=== PATIENT | male | born 1955 | race African-American/Black ===

== ENCOUNTER 2018-11-11 10:53 | Inpatient (IN) | payer MEDICARE, OTHER ==
[2018-11-11 11:19] VITALS: BMI 34.0
--- NOTE | 2018-11-11 12:35 | HP ---
CIWA Score Nausea/Vomitin-No Nausea/No Vomiting Muscle Tremors: 4-Moderate,w/Arms Extend Anxiety: 4-Mod. Anxious/Guarded Agitation: 3 Paroxysmal Sweats: 1-Minimal Palms Moist Orientation: 0-Oriented Tacttile Disturbances: 0-None Auditory Disturbances: 0-None Visual Disturbances: 0-None Headache: 0-None Present CIWA-Ar Total Score: 12 - Admission Criteria OASAS Guidelines: Admission for Medically Managed Detox: Requires at least one of the followin. CIWA greater than 12 2. Seizures within the past 24 hours 3. Delirium tremens within the past 24 hours 4. Hallucinations within the past 24 hours 5. Acute intervention needed for co occurring medical disorder 6. Acute intervention needed for co occurring psychiatric disorder 7. Severe withdrawal that cannot be handled at a lower level of care (continued vomiting, continued diarrhea, abnormal vital signs) requiring intravenous medication and/or fluids 8. Patient presents the following: CIWA greater than 12 Admission Criteria Met: Admission criteria met Admission ROS S - HPI Chief Complaint: ALCOHOL WITHDRAWAL SX Allergies/Adverse Reactions: Allergies Allergy/AdvReac Type Severity Reaction Status Date / Time trazodone Allergy Severe Swelling Verified 11/11/18 11:54 History of Present Illness: 63 Y/O MALE WITH A HX OF ALCOHOL, CRACK/COCIANE DEPENDENCE WITH OCCASIONAL MARIJUANA SEEKING DETOX TX. FIRST TIME HERE IN THIS FACILITY. PT REPORTS HE WAS REFERRED TO [facility] DETOX FROM [facility](NO DETOX BED AVAILABLE). PT REPORTS PREVIOUS TREATMENT DETOX/REHAB TREATMENT AT [facility] WITH COMPLETTIONS BUT DID NOT FINISH LAST TREATMENT IN MAY 2018. PT REPORTS HX OF SCIATICA AND TAKES NEURONTIN, HAS HX OF HTN,GERD AND HYPERLIPIDEMIA AND TAKES MEDICATIONS(SEE MED LIST). PT REPORTS HE HAS A TEMPORARY PCP DR. IVON FARFAN AT [address] BUT WANTS TO SWITCH TO HIS PREVIOUS AT [address] [place] [address]. PT REPORTS HE HAS BEEN LIVING ON/OFF [facility]WEEN [facility] [place] [place] SINCE [place]. REPORTS HE HAS FAMILY IN [place] AND ONE NIECE IN [place]. Exam Limitations: No Limitations - Ebola screening Have you traveled outside of the country in the last 21 days: No Have you had contact with anyone from an Ebola affected area: No Have you been sick,other than usual withdrawal symptoms: No Do you have a fever: No - Review of Systems Constitutional: Changes in sleep EENT: reports: Blurred Vision (WEARS CORRECTIVE GLASSES--STOLEN), Nose Congestion, Dental Problems (NO TEETH--DENTURES STOLEN ON THE TRAIN) Respiratory: reports: SOB with Exertion Cardiac: reports: Chest Tightness GI: reports: Other (ABDOMINAL SX/HERNIA/PERFORATION) Musculoskeletal: reports: Back Pain, Joint Pain, Muscle Pain Neuro: reports: Tremors Endocrine: reports: No Symptoms Reported Hematology: reports: No Symptoms Reported Psychiatric: reports: Orientated x3 Other Systems: Reviewed and Negative Patient History - Patient Medical History Hx Anemia: No Hx Asthma: No Hx Chronic Obstructive Pulmonary Disease (COPD): No Hx Cardiac Disorders: Yes (PALPITATIONS) Hx Hypertension: Yes (ON MED) Hx Hypercholesterolemia: Yes (ON MED) HX Cerebrovascular Accident: Yes (LEFT SIDE 2004) Hx Seizures: Yes (LAST EPISODE 2000-NO MED) Hx Diabetes: No Hx Gastrointestinal Disorders: Yes (GERD/SX) Hx Sexually Transmitted Disorders: Yes (SYPHILIS 1970 WITH TREATMENT) Hx Renal Disease (ESRD): No Hx Thyroid Disease: No Hx Human Immunodeficiency Virus (HIV): No Hx Hepatitis C: No Hx Depression: No Hx Suicide Attempt: No (DENIES S/I) Hx Bipolar Disorder: No Hx Schizophrenia: No - Patient Surgical History Past Surgical History: Yes Hx Abdominal Surgery: Yes (PERFORATED GASTRIC ULCER IN 2014; ABD HERNIA 2006) Other Surgical History: INTESTINAL BLOCKAGE 2008-MESH Anesthesia Reaction: No - PPD History Previous Implant?: Yes (PPD POSITIVE HX WITH INH + B12) Documented Results: Positive w/o proof Implanted On Prior [facility] Admission?: No Results: CXR TO BE DONE PPD to be Administered?: No - Reproductive History Patient is a Female of Child Bearing Age (11 -55 yrs old): No (MALE) - Smoking Cessation Smoking history: Current every day smoker Have you smoked in the past 12 months: Yes Aproximately how many cigarettes per day: 3 Hx Chewing Tobacco Use: No Initiated information on smoking cessation: Yes 'Breaking Loose' booklet given: 11/11/18 - Substance & Tx. History Hx Alcohol Use: Yes Hx Substance Use: Yes Substance Use Type: Alcohol, Cocaine, Marijuana Hx Substance Use Treatment: Yes ([facility]) - Substances Abused Crack Route: Smoking Frequency: 1-2 times per week Amount used: $100 Age of first use: 26 Date of Last Use: 11/10/18 Alcohol-vodka/4 eyad Route: Oral Frequency: Daily Amount used: 2 pts./2 (24 oz.) Age of first use: 13 Date of Last Use: 11/11/18 Family Disease History - Family Disease History Family Disease History: Other: Mother (HTN) Admission Physical Exam BHS - Vital Signs Vital Signs: Vital Signs - 24 hr 11/11/18 11:14 Temperature 98.7 F Pulse Rate 113 H Respiratory 20 Rate Blood Pressure 105/56 L - Physical General Appearance: Yes: Moderate Distress, Alcohol on Breath, Intoxicated, Anxious HEENTM: Yes: EOMI, Normocephalic, ANIL, Pharynx Normal Respiratory: Yes: Chest Non-Tender, Lungs Clear, Normal Breath Sounds, No Respiratory Distress Neck: Yes: Supple, Trachea in good position Breast: Yes: Breast Exam Deferred Cardiology: Yes: Regular Rhythm, S1, S2, Tachycardia Abdominal: Yes: Non Tender, Soft, Protuberent, Surgical Scar Genitourinary: Yes: Other (N/C) Back: Yes: Decreased Range of Motion (SMALL LEFT FINGER-ACTIVE) Musculoskeletal: Yes: Back pain, Other (WALKS WITH CANE-WITH PATIENT.) Extremities: Yes: Normal Range of Motion, Tremors Neurological: Yes: continuous conveyor screen drier II-XII NML intact, Fully Oriented, Alert, Motor Strength 5/5 Integumentary: Yes: Dry, Warm Lymphatic: Yes: Within Normal Limits - Diagnostic (1) Alcohol dependence with uncomplicated withdrawal Current Visit: Yes Status: Acute (2) HTN (hypertension) Current Visit: Yes Status: Chronic Qualifiers: Hypertension type: essential hypertension Qualified Code(s): I10 - Essential (primary) hypertension (3) Hypercholesteremia Current Visit: Yes Status: Chronic (4) History of sciatica Current Visit: Yes Status: Chronic (5) Use of cane as ambulatory aid Current Visit: Yes Status: Chronic (6) Hx of seizure disorder Current Visit: Yes Status: Suspected (7) GERD (gastroesophageal reflux disease) Current Visit: Yes Status: Chronic Qualifiers: Esophagitis presence: esophagitis presence not specified Qualified Code(s) : K21.9 - Gastro-esophageal reflux disease without esophagitis (8) Status post cerebrovascular accident Current Visit: Yes Status: Resolved Comment: LEFT SIDE (9) Obesity (BMI 30.0-34.9) Current Visit: Yes Status: Chronic (10) Knee pain, chronic Current Visit: Yes Status: Chronic Qualifiers: Laterality: bilateral Qualified Code(s): M25.561 - Pain in right knee; M25.562 - Pain in left knee; G89.29 - Other chronic pain Cleared for Admission BHS - Detox or Rehab [facility] Level of Care: Medically Managed Detox Regimen/Protocol: Librium S Breath Alcohol Content Breath Alcohol Content: 0.096 Urine Drug Screen - Results Drug Screen Negative: No Urine Drug Screen Results: THC-Marijuana, CATHERINE-Cocaine Inpatient Rehab Admission - Rehab Decision to Admit Inpatient rehab admission?: No
[2018-11-11] MEDS ORDERED: IBUPROFEN 400 MG TABLET (FP) PO PRN (12:56)
[2018-11-11] MEDS ORDERED: guaiFENesin/D-METHORPHAN HB 10 ML UNIT-DOSE CUPS PO PRN (12:56)
[2018-11-11] MEDS ORDERED: MAGNESIUM CITRATE 300 ML BOTTLE PO PRN (12:56)
[2018-11-11] MEDS ORDERED: P-EPHED 60MG/TRIPROLIDI 2.5MG TABLET PO PRN (12:56)
[2018-11-11] MEDS ORDERED: chlordiazePOXIDE HCL 25 MG CAPSULE PO PRN (12:56)
[2018-11-11] MEDS ORDERED: ACETAMINOPHEN 325 MG TABLET (FP) PO PRN (12:56)
[2018-11-11] MEDS ORDERED: MAG HYDROX/AL HYDROX/SIMETH 30 ML UNIT-DOSE CUP PO PRN (12:56)
[2018-11-11] MEDS ORDERED: MAGNESIUM HYDROX 2400MG/30ML ORAL SUSPENSION 30 ML CUP PO PRN (12:56)
[2018-11-11] MEDS ORDERED: LOPERAMIDE HCL 2 MG CAPSULE PO PRN (12:56)
[2018-11-11] MEDS ORDERED: MENTHOL/PHENOL 1 EACH UD MM PRN (12:56)
--- NOTE | 2018-11-11 14:58 | EKG ---
Test Reason : Blood Pressure : / mmHG Vent. Rate : 115 BPM Atrial Rate : 115 BPM P-R Int : 122 ms QRS Dur : 086 ms QT Int : 326 ms P-R-T Axes : 063 -35 -25 degrees QTc Int : 450 ms SINUS TACHYCARDIA WITH FUSION COMPLEXES LEFT AXIS DEVIATION NONSPECIFIC T WAVE ABNORMALITY ABNORMAL ECG NO PREVIOUS ECGS AVAILABLE Confirmed by SHREYAS SHARMA MD ([id number]) on 11/11/2018 2:58:10 PM Referred By: Confirmed By:SHREYAS SHARMA MD
[2018-11-11] MEDS: chlordiazePOXIDE HCL 25 MG CAPSULE PO SCH ×2 (17:49→22:16)
[2018-11-11] MEDS: THIAMINE HCL 100 MG TABLET (FP) PO SCH (22:16)
[2018-11-11] MEDS: MELATONIN 5 MG TABLETS PO PRN (22:16)
[2018-11-12] MEDS: chlordiazePOXIDE HCL 25 MG CAPSULE PO SCH ×4 (05:51→22:16)
[2018-11-12] MEDS: PRENATAL VITAMINS W/ FOLIC ACID TABLET (FP) PO SCH (10:18)
[2018-11-12] MEDS ORDERED: PANTOPRAZOLE 40 MG TABLET (FP) PO ONE (10:26)
[2018-11-12 11:22] LABS: ALK PHOS 80 U/L (45-117); ANION GAP 10 MMOL/L (8-16); BILIRUBIN,TOTAL 0.4 mg/dL (0.2-1); BLOOD UREA NITROGEN 20 mg/dL (7-18); CALCIUM 8.7 mg/dL (8.5-10.1); CHLORIDE 108 mmol/L (98-107); CO2 22 mmol/L (21-32); GLUCOSE,RANDOM 127 mg/dL (74-106); POTASSIUM 3.5 mmol/L (3.5-5.1); SGOT/AST 27 U/L (15-37); SGPT/ALT 23 U/L (13-61); SODIUM 140 mmol/L (136-145); TOT PROT 7.6 g/dl (6.4-8.2)
[2018-11-12 11:32] LABS: HEMATOCRIT 40.2 % (35.4-49); HEMOGLOBIN 13.6 GM/dL (11.7-16.9); MCH 28.7 pg (25.7-33.7); MCHC 33.9 g/dl (32.0-35.9); MEAN CELL VOLUME 84.7 fl (80-96); MEAN PLT VOLUME 9.1 fl (7.5-11.1); PLATELET COUNT 274 K/MM3 (134-434); RBC 4.75 M/mm3 (4.00-5.60); RDW 14.6 % (11.9-15.9)
[2018-11-12] MEDS: ASPIRIN COATED 81 MG TABLET.EC PO SCH (11:37)
[2018-11-12 13:10] LABS: SICKLE CELL SCREEN NEGATIVE (NEGATIVE)
--- NOTE | 2018-11-12 14:23 | PN ---
S CIWA - CIWA Score Nausea/Vomitin-No Nausea/No Vomiting Muscle Tremors: 3 Anxiety: 0-No Anxiety, at Ease Agitation: 0-Normal Activity Paroxysmal Sweats: 3 Orientation: 0-Oriented Tacttile Disturbances: 2-Mild Itch/Numbness/Burn Auditory Disturbances: 1-Very Mild Visual Disturbances: 2-Mild Sensitivity Headache: 0-None Present CIWA-Ar Total Score: 11 BHS Progress Note (SOAP) Subjective: Tremors, Sweating, Interrupted Sleep. Objective: PATIENT A & O X 3, OBSERVED AMBULATING ON UNIT WITH ASSISTANCE OF A CANE. IN NO ACUTE DISTRESS. 11/12/18 14:22 Vital Signs Temperature 97.3 F L 11/12/18 09:27 Pulse Rate 106 H 11/12/18 09:27 Respiratory Rate 18 11/12/18 09:27 Blood Pressure 127/74 11/12/18 09:27 O2 Sat by Pulse Oximetry (%) Laboratory Tests 11/11/18 11/12/18 11/12/18 13:00 06:00 06:00 WBC 10.0 RBC 4.75 Hgb 13.6 Hct 40.2 MCV 84.7 MCH 28.7 MCHC 33.9 RDW 14.6 Plt Count 274 MPV 9.1 Sickle Cell Screen Negative Sodium 140 Potassium 3.5 Chloride 108 H Carbon Dioxide 22 Anion Gap 10 BUN 20 H Creatinine 1.0 Creat Clearance w eGFR > 60 Random Glucose 127 H Calcium 8.7 Total Bilirubin 0.4 AST 27 ALT 23 Alkaline Phosphatase 80 Total Protein 7.6 Albumin 4.0 RPR Titer HIV 1&2 Antibody Screen Negative HIV P24 Antigen Negative 11/12/18 06:00 WBC RBC Hgb Hct MCV MCH MCHC RDW Plt Count MPV Sickle Cell Screen Sodium Potassium Chloride Carbon Dioxide Anion Gap BUN Creatinine Creat Clearance w eGFR Random Glucose Calcium Total Bilirubin AST ALT Alkaline Phosphatase Total Protein Albumin RPR Titer Nonreactive HIV 1&2 Antibody Screen HIV P24 Antigen LABS NOTED. Assessment: 11/12/18 14:22 WITHDRAWAL SYMPTOMS. Plan: CONTINUE DETOX. INCREASE DAILY PO FLUID INTAKE.
[2018-11-12] MEDS: GABAPENTIN 300 MG CAPSULE (FP) PO SCH ×2 (15:06→22:16)
[2018-11-12] MEDS: LISINOPRIL 20 MG TABLET (FP) PO SCH (15:48)
[2018-11-12] MEDS: ATORVASTATIN CA 80 MG TABLET (FP) PO SCH (22:16)
[2018-11-12] MEDS: THIAMINE HCL 100 MG TABLET (FP) PO SCH (22:16)
[2018-11-13] MEDS: GABAPENTIN 300 MG CAPSULE (FP) PO SCH ×3 (05:21→22:22)
[2018-11-13] MEDS: chlordiazePOXIDE HCL 25 MG CAPSULE PO SCH ×2 (05:21→10:02)
[2018-11-13] MEDS: PRENATAL VITAMINS W/ FOLIC ACID TABLET (FP) PO SCH (10:02)
[2018-11-13] MEDS: PANTOPRAZOLE 40 MG TABLET (FP) PO SCH (10:02)
[2018-11-13] MEDS: LISINOPRIL 20 MG TABLET (FP) PO SCH (10:02)
[2018-11-13] MEDS: ASPIRIN COATED 81 MG TABLET.EC PO SCH (10:02)
--- NOTE | 2018-11-13 14:37 | PN ---
S CIWA - CIWA Score Nausea/Vomitin-No Nausea/No Vomiting Muscle Tremors: 3 Anxiety: 1-Mildly Anxious Agitation: 2 Paroxysmal Sweats: 1-Minimal Palms Moist Orientation: 1-Uncertain about Date Tacttile Disturbances: 1-Very Mild Itch/Numbness Auditory Disturbances: 0-None Visual Disturbances: 0-None Headache: 1-Very Mild CIWA-Ar Total Score: 10 BHS Progress Note (SOAP) Subjective: tremor sweating itching skin dry Objective: 11/13/18 14:36 Vital Signs Temperature 97.2 F L 11/13/18 13:35 Pulse Rate 109 H 11/13/18 13:35 Respiratory Rate 20 11/13/18 13:35 Blood Pressure 132/76 11/13/18 13:35 O2 Sat by Pulse Oximetry (%) Laboratory Last Values WBC 10.0 K/mm3 (4.0-10.0) 11/12/18 06:00 RBC 4.75 M/mm3 (4.00-5.60) 11/12/18 06:00 Hgb 13.6 GM/dL (11.7-16.9) 11/12/18 06:00 Hct 40.2 % (35.4-49) 11/12/18 06:00 MCV 84.7 fl (80-96) 11/12/18 06:00 MCH 28.7 pg (25.7-33.7) 11/12/18 06:00 MCHC 33.9 g/dl (32.0-35.9) 11/12/18 06:00 RDW 14.6 % (11.9-15.9) 11/12/18 06:00 Plt Count 274 K/MM3 (134-434) 11/12/18 06:00 MPV 9.1 fl (7.5-11.1) 11/12/18 06:00 Sickle Cell Screen Negative (NEGATIVE) 11/12/18 06:00 Sodium 140 mmol/L (136-145) 11/12/18 06:00 Potassium 3.5 mmol/L (3.5-5.1) 11/12/18 06:00 Chloride 108 mmol/L (98-107) H 11/12/18 06:00 Carbon Dioxide 22 mmol/L (21-32) 11/12/18 06:00 Anion Gap 10 MMOL/L (8-16) 11/12/18 06:00 BUN 20 mg/dL (7-18) H 11/12/18 06:00 Creatinine 1.0 mg/dL (0.55-1.3) 11/12/18 06:00 Creat Clearance w eGFR > 60 (>60) 11/12/18 06:00 Random Glucose 127 mg/dL (74-106) H 11/12/18 06:00 Calcium 8.7 mg/dL (8.5-10.1) 11/12/18 06:00 Total Bilirubin 0.4 mg/dL (0.2-1) 11/12/18 06:00 AST 27 U/L (15-37) 11/12/18 06:00 ALT 23 U/L (13-61) 11/12/18 06:00 Alkaline Phosphatase 80 U/L (45-117) 11/12/18 06:00 Total Protein 7.6 g/dl (6.4-8.2) 11/12/18 06:00 Albumin 4.0 g/dl (3.4-5.0) 11/12/18 06:00 RPR Titer Nonreactive (NONREACTIVE) 11/12/18 06:00 HIV 1&2 Antibody Screen Negative 11/11/18 13:00 HIV P24 Antigen Negative 11/11/18 13:00 lab noted Assessment: 11/13/18 14:36 withdrawal sx Plan: continue detox
[2018-11-13] MEDS: chlordiazePOXIDE 5 MG CAPSULE PO SCH ×2 (17:31→22:22)
[2018-11-13] MEDS: THIAMINE HCL 100 MG TABLET (FP) PO SCH (22:22)
[2018-11-13] MEDS: ATORVASTATIN CA 80 MG TABLET (FP) PO SCH (22:22)
[2018-11-13] MEDS: MELATONIN 5 MG TABLETS PO PRN (22:22)
[2018-11-14] MEDS: chlordiazePOXIDE 5 MG CAPSULE PO SCH ×2 (05:20→10:17)
[2018-11-14] MEDS: GABAPENTIN 300 MG CAPSULE (FP) PO SCH ×3 (07:31→22:05)
--- NOTE | 2018-11-14 10:15 | PN ---
S CIWA - CIWA Score Nausea/Vomitin-No Nausea/No Vomiting Muscle Tremors: 1-None Visible, but [place] Anxiety: 1-Mildly Anxious Agitation: 1-Slight > Activity Paroxysmal Sweats: 1-Minimal Palms Moist Orientation: 0-Oriented Tacttile Disturbances: 0-None Auditory Disturbances: 0-None Visual Disturbances: 0-None Headache: 1-Very Mild CIWA-Ar Total Score: 5 BHS Progress Note (SOAP) Subjective: feeling better less tremor mild sweating slept through the night received 30 days medications on 11/02/18 from primary care provider Objective: 11/14/18 10:17 Vital Signs Temperature 97.9 F 11/14/18 09:14 Pulse Rate 104 H 11/14/18 09:14 Respiratory Rate 20 11/14/18 09:14 Blood Pressure 110/63 11/14/18 09:14 O2 Sat by Pulse Oximetry (%) Laboratory Last Values WBC 10.0 K/mm3 (4.0-10.0) 11/12/18 06:00 RBC 4.75 M/mm3 (4.00-5.60) 11/12/18 06:00 Hgb 13.6 GM/dL (11.7-16.9) 11/12/18 06:00 Hct 40.2 % (35.4-49) 11/12/18 06:00 MCV 84.7 fl (80-96) 11/12/18 06:00 MCH 28.7 pg (25.7-33.7) 11/12/18 06:00 MCHC 33.9 g/dl (32.0-35.9) 11/12/18 06:00 RDW 14.6 % (11.9-15.9) 11/12/18 06:00 Plt Count 274 K/MM3 (134-434) 11/12/18 06:00 MPV 9.1 fl (7.5-11.1) 11/12/18 06:00 Sickle Cell Screen Negative (NEGATIVE) 11/12/18 06:00 Sodium 140 mmol/L (136-145) 11/12/18 06:00 Potassium 3.5 mmol/L (3.5-5.1) 11/12/18 06:00 Chloride 108 mmol/L (98-107) H 11/12/18 06:00 Carbon Dioxide 22 mmol/L (21-32) 11/12/18 06:00 Anion Gap 10 MMOL/L (8-16) 11/12/18 06:00 BUN 20 mg/dL (7-18) H 11/12/18 06:00 Creatinine 1.0 mg/dL (0.55-1.3) 11/12/18 06:00 Creat Clearance w eGFR > 60 (>60) 11/12/18 06:00 Random Glucose 127 mg/dL (74-106) H 11/12/18 06:00 Calcium 8.7 mg/dL (8.5-10.1) 11/12/18 06:00 Total Bilirubin 0.4 mg/dL (0.2-1) 11/12/18 06:00 AST 27 U/L (15-37) 11/12/18 06:00 ALT 23 U/L (13-61) 11/12/18 06:00 Alkaline Phosphatase 80 U/L (45-117) 11/12/18 06:00 Total Protein 7.6 g/dl (6.4-8.2) 11/12/18 06:00 Albumin 4.0 g/dl (3.4-5.0) 11/12/18 06:00 RPR Titer Nonreactive (NONREACTIVE) 11/12/18 06:00 HIV 1&2 Antibody Screen Negative 11/11/18 13:00 HIV P24 Antigen Negative 11/11/18 13:00 lab noted Assessment: 11/14/18 10:17 mild withdrawal sx Plan: continue detox
[2018-11-14] MEDS: PRENATAL VITAMINS W/ FOLIC ACID TABLET (FP) PO SCH (10:16)
[2018-11-14] MEDS: LISINOPRIL 20 MG TABLET (FP) PO SCH (10:16)
[2018-11-14] MEDS: ASPIRIN COATED 81 MG TABLET.EC PO SCH (10:16)
[2018-11-14] MEDS: PANTOPRAZOLE 40 MG TABLET (FP) PO SCH (10:17)
[2018-11-14] MEDS: chlordiazePOXIDE HCL 10 MG CAPSULE PO SCH ×2 (18:02→22:05)
[2018-11-14] MEDS: THIAMINE HCL 100 MG TABLET (FP) PO SCH (22:05)
[2018-11-14] MEDS: ATORVASTATIN CA 80 MG TABLET (FP) PO SCH (22:05)
[2018-11-14] MEDS: MELATONIN 5 MG TABLETS PO PRN (22:06)
[2018-11-15] MEDS: GABAPENTIN 300 MG CAPSULE (FP) PO SCH (05:20)
[2018-11-15] MEDS: chlordiazePOXIDE HCL 10 MG CAPSULE PO SCH ×2 (07:01→10:05)
[2018-11-15 09:12] VITALS: BP 136/90; PULSE 105; TEMP 96.7
[2018-11-15] MEDS: PRENATAL VITAMINS W/ FOLIC ACID TABLET (FP) PO SCH (10:04)
[2018-11-15] MEDS: PANTOPRAZOLE 40 MG TABLET (FP) PO SCH (10:04)
[2018-11-15] MEDS: ASPIRIN COATED 81 MG TABLET.EC PO SCH (10:04)
[2018-11-15] MEDS: LISINOPRIL 20 MG TABLET (FP) PO SCH (10:04)
--- NOTE | 2018-11-15 12:50 | DS ---
[facility] Detox Discharge Summary Admission Date: 11/11/18 Discharge Date: 11/15/18 - History Present History: Alcohol Dependence Additional Comments: 63 years old male admitted on 11/11/18 for alcohol withdrawal stabilization completed alcohol detox regimen aftercare [facility] Pertinent Past History: encourage medication list in wallet bring medication list and lab report to aftercare appointment update medication list when change of medication - Physical Exam Results Vital Signs: Vital Signs Temperature 96.7 F L 11/15/18 09:11 Pulse Rate 105 H 11/15/18 09:11 Respiratory Rate 20 11/15/18 09:11 Blood Pressure 136/90 11/15/18 09:11 O2 Sat by Pulse Oximetry (%) Pertinent Admission Physical Exam Findings: alcohol withdrawal sx Laboratory Last Values WBC 10.0 K/mm3 (4.0-10.0) 11/12/18 06:00 RBC 4.75 M/mm3 (4.00-5.60) 11/12/18 06:00 Hgb 13.6 GM/dL (11.7-16.9) 11/12/18 06:00 Hct 40.2 % (35.4-49) 11/12/18 06:00 MCV 84.7 fl (80-96) 11/12/18 06:00 MCH 28.7 pg (25.7-33.7) 11/12/18 06:00 MCHC 33.9 g/dl (32.0-35.9) 11/12/18 06:00 RDW 14.6 % (11.9-15.9) 11/12/18 06:00 Plt Count 274 K/MM3 (134-434) 11/12/18 06:00 MPV 9.1 fl (7.5-11.1) 11/12/18 06:00 Sickle Cell Screen Negative (NEGATIVE) 11/12/18 06:00 Sodium 140 mmol/L (136-145) 11/12/18 06:00 Potassium 3.5 mmol/L (3.5-5.1) 11/12/18 06:00 Chloride 108 mmol/L (98-107) H 11/12/18 06:00 Carbon Dioxide 22 mmol/L (21-32) 11/12/18 06:00 Anion Gap 10 MMOL/L (8-16) 11/12/18 06:00 BUN 20 mg/dL (7-18) H 11/12/18 06:00 Creatinine 1.0 mg/dL (0.55-1.3) 11/12/18 06:00 Creat Clearance w eGFR > 60 (>60) 11/12/18 06:00 Random Glucose 127 mg/dL (74-106) H 11/12/18 06:00 Calcium 8.7 mg/dL (8.5-10.1) 11/12/18 06:00 Total Bilirubin 0.4 mg/dL (0.2-1) 11/12/18 06:00 AST 27 U/L (15-37) 11/12/18 06:00 ALT 23 U/L (13-61) 11/12/18 06:00 Alkaline Phosphatase 80 U/L (45-117) 11/12/18 06:00 Total Protein 7.6 g/dl (6.4-8.2) 11/12/18 06:00 Albumin 4.0 g/dl (3.4-5.0) 11/12/18 06:00 RPR Titer Nonreactive (NONREACTIVE) 11/12/18 06:00 HIV 1&2 Antibody Screen Negative 11/11/18 13:00 HIV P24 Antigen Negative 11/11/18 13:00 lab noted - Treatment Hospital Course: Detox Protocol Followed, Detoxed Safely, Responded well, Discharged Condition Good, Rehab Referral Accepted Patient has Accepted a Rehab Referral to: addiction instutute - Medication Discharge Medications: Ambulatory Orders Aspirin [Aspirin EC] 81 mg PO DAILY 11/11/18 Gabapentin [Neurontin] 600 mg PO TID 11/11/18 Omeprazole 40 mg PO DAILY 11/11/18 Atorvastatin Ca [Lipitor] 80 mg PO HS #7 tablet 11/14/18 Lisinopril [Prinivil] 20 mg PO DAILY #7 tablet 11/14/18 - Diagnosis (1) Alcohol dependence with uncomplicated withdrawal Status: Acute (2) GERD (gastroesophageal reflux disease) Status: Chronic Qualifiers: Esophagitis presence: esophagitis presence not specified Qualified Code(s) : K21.9 - Gastro-esophageal reflux disease without esophagitis (3) HTN (hypertension) Status: Chronic Qualifiers: Hypertension type: essential hypertension Qualified Code(s): I10 - Essential (primary) hypertension (4) Use of cane as ambulatory aid Status: Chronic - AMA Did Patient Leave Against Medical Advice: No
== END 2018-11-15 11:32 | disposition home or self-care (01) ==
LOC: YASAS 10:53 → Y3N 13:02
PROVIDERS: ADMIT Surgery; ATTEND Surgery
DX: R01.2 Other cardiac sounds (principal); Z03.89 Encounter for observation for other suspected diseases and conditions ruled out; F10.20 Alcohol dependence, uncomplicated
CPT/HCPCS: 36415; 71046-TC-FY; 80053; 85027; 85660; 86593; 87389; 93005; 93010

== ENCOUNTER 2019-01-06 14:15 | Inpatient (IN) | payer MEDICARE, OTHER ==
--- NOTE | 2019-01-06 17:38 | HP ---
CIWA Score Nausea/Vomitin-No Nausea/No Vomiting Muscle Tremors: 4-Moderate,w/Arms Extend Anxiety: 1-Mildly Anxious Agitation: 1-Slight > Activity Paroxysmal Sweats: No Perspiration Orientation: 0-Oriented Tacttile Disturbances: 0-None Auditory Disturbances: 0-None Visual Disturbances: 3-Moderate Sensitivity Headache: 0-None Present CIWA-Ar Total Score: 9 - Admission Criteria OASAS Guidelines: Admission for Medically Managed Detox: Requires at least one of the followin. CIWA greater than 12 2. Seizures within the past 24 hours 3. Delirium tremens within the past 24 hours 4. Hallucinations within the past 24 hours 5. Acute intervention needed for co occurring medical disorder 6. Acute intervention needed for co occurring psychiatric disorder 7. Severe withdrawal that cannot be handled at a lower level of care (continued vomiting, continued diarrhea, abnormal vital signs) requiring intravenous medication and/or fluids 8. Admission ROS S - HPI Allergies/Adverse Reactions: Allergies Allergy/AdvReac Type Severity Reaction Status Date / Time trazodone Allergy Severe Swelling Verified 01/06/19 15:48 History of Present Illness: pt here requesting detox from etoh use , reports 2 pints and 4-5 beers/day , relapse 10 days after d/c from this facility , starts drinking in the mornings, reports tremors if not drinking , denies seizures , had blackouts in the past , first age of alcohol use 15 , longest sobriety 5 .5 years while incarcerated [id number] , current symptoms as above , latest alcohol use was yesterday . cannabis use : 1-2 weeks ago " once in a while " tobacco : 09/30 ppd PMHX : OA anita knees using cane for stability , sciatica , htn , gerd , PSHX : 2004 - perforated gastric ulcer, 2006 - hernia, 2008- interstinal obstruction Psych : denies Meds - Lisinopril 20 mg ,ASA 81 mg , Omeprazole 40 mg , Atorvastatin , Gabapentin Exam Limitations: No Limitations - Ebola screening Have you traveled outside of the country in the last 21 days: No (N) Have you had contact with anyone from an Ebola affected area: No Do you have a fever: No - Review of Systems Constitutional: See HPI EENT: reports: Other (glasses , missing teeth , reports upper and lower dentures , denies dysphagia) Respiratory: reports: No Symptoms reported Cardiac: reports: No Symptoms Reported GI: reports: No Symptoms Reported : reports: No Symptoms Reported Musculoskeletal: reports: See HPI, Joint Pain, Joint Stiffness Integumentary: reports: No Symptoms Reported Neuro: reports: No Symptoms reported Endocrine: reports: No Symptoms Reported Psychiatric: reports: Orientated x3 Patient History - Patient Medical History Hx Anemia: No Hx Asthma: No Hx Chronic Obstructive Pulmonary Disease (COPD): No Hx Cardiac Disorders: Yes (PALPITATIONS) Hx Hypertension: Yes (ON MED) Hx Hypercholesterolemia: Yes (ON MED) HX Cerebrovascular Accident: Yes (LEFT SIDE 2004) Hx Seizures: Yes (LAST EPISODE 2000-NO MED) Hx Diabetes: No Hx Gastrointestinal Disorders: Yes (GERD/SX) Hx Genitourinary Disorders: No Hx Sexually Transmitted Disorders: Yes (SYPHILIS 1971 WITH TREATMENT) Hx Renal Disease (ESRD): No Hx Thyroid Disease: No Hx Human Immunodeficiency Virus (HIV): No Hx Hepatitis C: No Hx Depression: No Hx Suicide Attempt: No (DENIES S/I) Hx Bipolar Disorder: No Hx Schizophrenia: No - Patient Surgical History Past Surgical History: Yes Hx Neurologic Surgery: No Hx Cataract Extraction: No Hx Cardiac Surgery: No Hx Lung Surgery: No Hx Breast Surgery: No Hx Breast Biopsy: No Hx Abdominal Surgery: Yes (PERFORATED GASTRIC ULCER IN 2014; ABD HERNIA 2006) Hx Appendectomy: No Hx Cholecystectomy: No Hx Genitourinary Surgery: No Hx Section: No Hx Orthopedic Surgery: No Other Surgical History: INTESTINAL BLOCKAGE 2009-MESH Anesthesia Reaction: No - PPD History Results: CXR TO BE DONE - Smoking Cessation Smoking history: Current every day smoker Have you smoked in the past 12 months: Yes Aproximately how many cigarettes per day: 3 Hx Chewing Tobacco Use: No Initiated information on smoking cessation: No - Substances abused Alcohol Substance route: Oral Frequency: Daily Amount used: 2 pt. vodka, 4 beers ( 24 oz cans) Age of first use: 15 Date of last use: 01/05/19 Family Disease History - Family Disease History Family Disease History: Other: Mother (HTN) Admission Physical Exam BHS - Vital Signs Vital Signs: Vital Signs - 24 hr 01/06/19 15:49 Temperature 98.1 F Pulse Rate 86 Respiratory 18 Rate Blood Pressure 165/108 H - Physical General Appearance: Yes: Mild Distress, Tremorous, Anxious HEENTM: Yes: EOMI, Hearing grossly Normal, Normocephalic, Normal Voice, Other ( edentulous upper and lower) Respiratory: Yes: Chest Non-Tender, Lungs Clear, Normal Breath Sounds Neck: Yes: No masses,lesions,Nodules, Trachea in good position Cardiology: Yes: Regular Rhythm, Regular Rate, S1, S2 Abdominal: Yes: Non Tender, Soft, Protuberent, Surgical Scar Back: Yes: Normal Inspection Musculoskeletal: Yes: Joint Stiffness (anita knees , right knee edema , stiffness , left knee decreased AROM , stiffness), Other (unsteady gait) Extremities: Yes: Non-Tender Neurological: Yes: Fully Oriented, Alert, Motor Strength 5/5, Normal Mood/Affect Integumentary: Yes: Warm - Diagnostic (1) Alcohol dependence with uncomplicated withdrawal Current Visit: Yes Status: Acute (2) Nicotine dependence Current Visit: Yes Status: Chronic Qualifiers: Nicotine product type: cigarettes Breathalyzer - Breathalyzer Breathalyzer: 0 Urine Drug Screen - Test Device Lot number: [id number] Expiration date: 08/26/20 - Control Is test valid?: Yes - Results Drug screen NEGATIVE: No Urine drug screen results: THC-Marijuana, BZO-Benzodiazepines Inpatient Rehab Admission - Rehab Decision to Admit Inpatient rehab admission?: No
[2019-01-06] MEDS ORDERED: ACETAMINOPHEN 325 MG TABLET (FP) PO PRN ×2 (17:46)
[2019-01-06] MEDS ORDERED: MENTHOL/PHENOL 1 EACH UD MM PRN (17:46)
[2019-01-06] MEDS ORDERED: chlordiazePOXIDE HCL 10 MG CAPSULE PO PRN (17:46)
[2019-01-06] MEDS ORDERED: MAGNESIUM HYDROX 2400MG/30ML ORAL SUSPENSION 30 ML CUP PO PRN (17:46)
[2019-01-06] MEDS ORDERED: IBUPROFEN 400 MG TABLET (FP) PO PRN (17:46)
[2019-01-06] MEDS ORDERED: BISMUTH SUBSALICYLATE 524 MG/30 ML UD PO PRN (17:46)
[2019-01-06] MEDS ORDERED: MAGNESIUM CITRATE 300 ML BOTTLE PO PRN (17:46)
[2019-01-06] MEDS ORDERED: NICOTINE POLACRILEX 2 MG GUM BUC PRN (17:46)
[2019-01-06] MEDS ORDERED: MAG HYDROX/AL HYDROX/SIMETH 30 ML UNIT-DOSE CUP PO PRN (17:46)
[2019-01-06 18:01] VITALS: BMI 36.6
[2019-01-06] MEDS: ASPIRIN COATED 81 MG TABLET.EC PO SCH (19:09)
[2019-01-06] MEDS: LISINOPRIL 20 MG TABLET (FP) PO SCH (19:09)
[2019-01-06] MEDS: PANTOPRAZOLE 40 MG TABLET (FP) PO SCH (19:09)
[2019-01-06] MEDS: chlordiazePOXIDE HCL 25 MG CAPSULE PO SCH (22:00)
[2019-01-06] MEDS: THIAMINE HCL 100 MG TABLET (FP) PO SCH (22:08)
[2019-01-06] MEDS: MELATONIN 5 MG TABLETS PO PRN (22:08)
[2019-01-06] MEDS: ATORVASTATIN CA 80 MG TABLET (FP) PO SCH (22:09)
[2019-01-07] MEDS: chlordiazePOXIDE HCL 25 MG CAPSULE PO SCH ×2 (05:26→13:56)
[2019-01-07] MEDS: PANTOPRAZOLE 40 MG TABLET (FP) PO SCH (10:09)
[2019-01-07] MEDS: LISINOPRIL 20 MG TABLET (FP) PO SCH (10:09)
[2019-01-07] MEDS: PRENATAL VITAMINS W/ FOLIC ACID TABLET (FP) PO SCH (10:10)
[2019-01-07] MEDS: ASPIRIN COATED 81 MG TABLET.EC PO SCH (10:10)
[2019-01-07] MEDS ORDERED: PATIENT'S OWN MEDICATION (NON-FORMULARY) (Gabapentin [Neurontin] 600 MG) PO SCH (10:12)
[2019-01-07 10:57] LABS: ALBUMIN 3.4 g/dl (3.4-5.0); ALK PHOS 78 U/L (45-117); ANION GAP 6 MMOL/L (8-16); BILIRUBIN,TOTAL 0.4 mg/dL (0.2-1); BLOOD UREA NITROGEN 12 mg/dL (7-18); CALCIUM 8.7 mg/dL (8.5-10.1); CHLORIDE 108 mmol/L (98-107); CO2 25 mmol/L (21-32); CREATININE 0.8 mg/dL (0.55-1.3); GLUCOSE,RANDOM 110 mg/dL (74-106); POTASSIUM 4.3 mmol/L (3.5-5.1); SGOT/AST 19 U/L (15-37); SGPT/ALT 17 U/L (13-61); SODIUM 139 mmol/L (136-145); TOT PROT 7.1 g/dl (6.4-8.2)
[2019-01-07 11:09] LABS: HEMATOCRIT 44.3 % (35.4-49); HEMOGLOBIN 14.5 GM/dL (11.7-16.9); MCH 27.6 pg (25.7-33.7); MCHC 32.7 g/dl (32.0-35.9); MEAN CELL VOLUME 84.3 fl (80-96); MEAN PLT VOLUME 8.6 fl (7.5-11.1); PLATELET COUNT 310 K/MM3 (134-434); RBC 5.25 M/mm3 (4.00-5.60); RDW 15.2 % (11.9-15.9); WHITE BLOOD COUNT 6.5 K/mm3 (4.0-10.0)
[2019-01-07] MEDS: GABAPENTIN 300 MG CAPSULE (FP) PO SCH ×2 (13:57→22:12)
--- NOTE | 2019-01-07 14:05 | PN ---
S CIWA - CIWA Score Nausea/Vomitin-No Nausea/No Vomiting Muscle Tremors: 4-Moderate,w/Arms Extend Anxiety: 2 Agitation: 0-Normal Activity Paroxysmal Sweats: 3 Orientation: 0-Oriented Tacttile Disturbances: 1-Very Mild Itch/Numbness Auditory Disturbances: 0-None Visual Disturbances: 3-Moderate Sensitivity Headache: 0-None Present CIWA-Ar Total Score: 13 BHS Progress Note (SOAP) Subjective: Sweating, Anxious, Tremors. Objective: PATIENT A & O X 3, OBSERVED AMBULATING ON UNIT WITH ASSISTANCE OF A CANE. IN NO ACUTE DISTRESS. 01/07/19 14:03 Vital Signs Temperature 97.4 F L 01/07/19 09:33 Pulse Rate 81 01/07/19 09:33 Respiratory Rate 18 01/07/19 09:33 Blood Pressure 128/85 01/07/19 09:33 O2 Sat by Pulse Oximetry (%) Laboratory Tests 01/07/19 01/07/19 01/07/19 07:30 07:30 07:30 WBC 6.5 RBC 5.25 Hgb 14.5 Hct 44.3 MCV 84.3 MCH 27.6 MCHC 32.7 RDW 15.2 Plt Count 310 MPV 8.6 Sodium 139 Potassium 4.3 Chloride 108 H Carbon Dioxide 25 Anion Gap 6 L BUN 12 Creatinine 0.8 Creat Clearance w eGFR 97.02 Random Glucose 110 H Calcium 8.7 Total Bilirubin 0.4 AST 19 ALT 17 Alkaline Phosphatase 78 Total Protein 7.1 Albumin 3.4 RPR Titer Nonreactive LABS NOTED. Assessment: 01/07/19 14:04 WITHDRAWAL SYMPTOMS. Plan: CONTINUE DETOX.
[2019-01-07] MEDS: chlordiazePOXIDE 5 MG CAPSULE PO SCH (22:12)
[2019-01-07] MEDS: THIAMINE HCL 100 MG TABLET (FP) PO SCH (22:12)
[2019-01-07] MEDS: ATORVASTATIN CA 80 MG TABLET (FP) PO SCH (22:12)
[2019-01-07] MEDS: MELATONIN 5 MG TABLETS PO PRN (22:13)
[2019-01-08] MEDS: GABAPENTIN 300 MG CAPSULE (FP) PO SCH ×3 (05:37→22:34)
[2019-01-08] MEDS: chlordiazePOXIDE 5 MG CAPSULE PO SCH ×2 (05:37→14:18)
[2019-01-08] MEDS: ASPIRIN COATED 81 MG TABLET.EC PO SCH (10:32)
[2019-01-08] MEDS: PRENATAL VITAMINS W/ FOLIC ACID TABLET (FP) PO SCH (10:33)
[2019-01-08] MEDS: PANTOPRAZOLE 40 MG TABLET (FP) PO SCH (10:33)
[2019-01-08] MEDS: LISINOPRIL 20 MG TABLET (FP) PO SCH (10:33)
--- NOTE | 2019-01-08 14:43 | PN ---
[facility] CIWA - CIWA Score Nausea/Vomitin-No Nausea/No Vomiting Muscle Tremors: 2 Anxiety: 1-Mildly Anxious Agitation: 3 Paroxysmal Sweats: 1-Minimal Palms Moist Orientation: 1-Uncertain about Date Tacttile Disturbances: 0-None Auditory Disturbances: 0-None Visual Disturbances: 0-None Headache: 1-Very Mild CIWA-Ar Total Score: 9 S Progress Note (SOAP) Subjective: ambulate with cane tolerate food and fluid well Objective: 01/08/19 14:45 Vital Signs Temperature 98.3 F 01/08/19 13:49 Pulse Rate 83 01/08/19 13:49 Respiratory Rate 18 01/08/19 13:49 Blood Pressure 135/91 01/08/19 13:49 O2 Sat by Pulse Oximetry (%) Laboratory Last Values WBC 6.5 K/mm3 (4.0-10.0) 01/07/19 07:30 RBC 5.25 M/mm3 (4.00-5.60) 01/07/19 07:30 Hgb 14.5 GM/dL (11.7-16.9) 01/07/19 07:30 Hct 44.3 % (35.4-49) 01/07/19 07:30 MCV 84.3 fl (80-96) 01/07/19 07:30 MCH 27.6 pg (25.7-33.7) 01/07/19 07:30 MCHC 32.7 g/dl (32.0-35.9) 01/07/19 07:30 RDW 15.2 % (11.9-15.9) 01/07/19 07:30 Plt Count 310 K/MM3 (134-434) 01/07/19 07:30 MPV 8.6 fl (7.5-11.1) 01/07/19 07:30 Sodium 139 mmol/L (136-145) 01/07/19 07:30 Potassium 4.3 mmol/L (3.5-5.1) 01/07/19 07:30 Chloride 108 mmol/L (98-107) H 01/07/19 07:30 Carbon Dioxide 25 mmol/L (21-32) 01/07/19 07:30 Anion Gap 6 MMOL/L (8-16) L 01/07/19 07:30 BUN 12 mg/dL (7-18) 01/07/19 07:30 Creatinine 0.8 mg/dL (0.55-1.3) 01/07/19 07:30 Creat Clearance w eGFR 97.02 (>60) 01/07/19 07:30 Random Glucose 110 mg/dL (74-106) H 01/07/19 07:30 Calcium 8.7 mg/dL (8.5-10.1) 01/07/19 07:30 Total Bilirubin 0.4 mg/dL (0.2-1) 01/07/19 07:30 AST 19 U/L (15-37) 01/07/19 07:30 ALT 17 U/L (13-61) 01/07/19 07:30 Alkaline Phosphatase 78 U/L (45-117) 01/07/19 07:30 Total Protein 7.1 g/dl (6.4-8.2) 01/07/19 07:30 Albumin 3.4 g/dl (3.4-5.0) 01/07/19 07:30 RPR Titer Nonreactive (NONREACTIVE) 01/07/19 07:30 lab noted Assessment: 01/08/19 14:45 withdrawal sx Plan: continue detox
[2019-01-08] MEDS ORDERED: chlordiazePOXIDE HCL 10 MG CAPSULE PO PRN (21:00)
[2019-01-08] MEDS: chlordiazePOXIDE HCL 10 MG CAPSULE PO SCH (21:33)
[2019-01-08] MEDS: THIAMINE HCL 100 MG TABLET (FP) PO SCH (22:33)
[2019-01-08] MEDS: MELATONIN 5 MG TABLETS PO PRN (22:34)
[2019-01-08] MEDS: ATORVASTATIN CA 80 MG TABLET (FP) PO SCH (22:34)
[2019-01-09] MEDS: chlordiazePOXIDE HCL 10 MG CAPSULE PO SCH ×3 (05:11→21:47)
[2019-01-09] MEDS: GABAPENTIN 300 MG CAPSULE (FP) PO SCH ×3 (07:11→21:47)
[2019-01-09] MEDS: LISINOPRIL 20 MG TABLET (FP) PO SCH (10:18)
[2019-01-09] MEDS: PRENATAL VITAMINS W/ FOLIC ACID TABLET (FP) PO SCH (10:18)
[2019-01-09] MEDS: PANTOPRAZOLE 40 MG TABLET (FP) PO SCH (10:19)
[2019-01-09] MEDS: ASPIRIN COATED 81 MG TABLET.EC PO SCH (10:19)
--- NOTE | 2019-01-09 13:43 | PN ---
S CIWA - CIWA Score Nausea/Vomitin-Mild Nausea/No Vomiting Muscle Tremors: 1-None Visible, but [place] Anxiety: 1-Mildly Anxious Agitation: 1-Slight > Activity Paroxysmal Sweats: No Perspiration Orientation: 0-Oriented Tacttile Disturbances: 0-None Auditory Disturbances: 0-None Visual Disturbances: 0-None Headache: 1-Very Mild CIWA-Ar Total Score: 5 S Progress Note (SOAP) Subjective: ambulate with cane social with peers on hallway in day room patient wants to go to [facility] in patient rehab Objective: 01/09/19 13:44 Vital Signs Temperature 97.6 F 01/09/19 13:23 Pulse Rate 96 H 01/09/19 13:23 Respiratory Rate 18 01/09/19 13:23 Blood Pressure 122/76 01/09/19 13:23 O2 Sat by Pulse Oximetry (%) Laboratory Last Values WBC 6.5 K/mm3 (4.0-10.0) 01/07/19 07:30 RBC 5.25 M/mm3 (4.00-5.60) 01/07/19 07:30 Hgb 14.5 GM/dL (11.7-16.9) 01/07/19 07:30 Hct 44.3 % (35.4-49) 01/07/19 07:30 MCV 84.3 fl (80-96) 01/07/19 07:30 MCH 27.6 pg (25.7-33.7) 01/07/19 07:30 MCHC 32.7 g/dl (32.0-35.9) 01/07/19 07:30 RDW 15.2 % (11.9-15.9) 01/07/19 07:30 Plt Count 310 K/MM3 (134-434) 01/07/19 07:30 MPV 8.6 fl (7.5-11.1) 01/07/19 07:30 Sodium 139 mmol/L (136-145) 01/07/19 07:30 Potassium 4.3 mmol/L (3.5-5.1) 01/07/19 07:30 Chloride 108 mmol/L (98-107) H 01/07/19 07:30 Carbon Dioxide 25 mmol/L (21-32) 01/07/19 07:30 Anion Gap 6 MMOL/L (8-16) L 01/07/19 07:30 BUN 12 mg/dL (7-18) 01/07/19 07:30 Creatinine 0.8 mg/dL (0.55-1.3) 01/07/19 07:30 Creat Clearance w eGFR 97.02 (>60) 01/07/19 07:30 Random Glucose 110 mg/dL (74-106) H 01/07/19 07:30 Calcium 8.7 mg/dL (8.5-10.1) 01/07/19 07:30 Total Bilirubin 0.4 mg/dL (0.2-1) 01/07/19 07:30 AST 19 U/L (15-37) 01/07/19 07:30 ALT 17 U/L (13-61) 01/07/19 07:30 Alkaline Phosphatase 78 U/L (45-117) 01/07/19 07:30 Total Protein 7.1 g/dl (6.4-8.2) 01/07/19 07:30 Albumin 3.4 g/dl (3.4-5.0) 01/07/19 07:30 RPR Titer Nonreactive (NONREACTIVE) 01/07/19 07:30 lab noted Assessment: 01/09/19 13:48 withdrawal sx Plan: continue detox
[2019-01-09] MEDS: THIAMINE HCL 100 MG TABLET (FP) PO SCH (21:47)
[2019-01-09] MEDS: ATORVASTATIN CA 80 MG TABLET (FP) PO SCH (21:47)
[2019-01-10] MEDS: GABAPENTIN 300 MG CAPSULE (FP) PO SCH (05:14)
[2019-01-10 09:17] VITALS: BP 146/89; PULSE 90; TEMP 69.9
[2019-01-10] MEDS: PANTOPRAZOLE 40 MG TABLET (FP) PO SCH (10:01)
[2019-01-10] MEDS: PRENATAL VITAMINS W/ FOLIC ACID TABLET (FP) PO SCH (10:01)
[2019-01-10] MEDS: ASPIRIN COATED 81 MG TABLET.EC PO SCH (10:01)
[2019-01-10] MEDS: LISINOPRIL 20 MG TABLET (FP) PO SCH (10:01)
--- NOTE | 2019-01-10 12:10 | DS ---
[facility] Detox Discharge Summary Admission Date: 01/06/19 Discharge Date: 01/10/19 - History Present History: Alcohol Dependence Additional Comments: 63 years old male admitted on 01/06/19 for alcohol withdrawal stabilization completed detox regimen aftercare [facility] alcohol rehab Pertinent Past History: transportation arranged for direct transfer bring in medication list and lab report to aftercare appointment - Physical Exam Results Vital Signs: Vital Signs Temperature 69.9 F L 01/10/19 09:03 Pulse Rate 90 01/10/19 09:03 Respiratory Rate 18 01/10/19 09:03 Blood Pressure 146/89 01/10/19 09:03 O2 Sat by Pulse Oximetry (%) Pertinent Admission Physical Exam Findings: alcohol withdrawal sx Laboratory Last Values WBC 6.5 K/mm3 (4.0-10.0) 01/07/19 07:30 RBC 5.25 M/mm3 (4.00-5.60) 01/07/19 07:30 Hgb 14.5 GM/dL (11.7-16.9) 01/07/19 07:30 Hct 44.3 % (35.4-49) 01/07/19 07:30 MCV 84.3 fl (80-96) 01/07/19 07:30 MCH 27.6 pg (25.7-33.7) 01/07/19 07:30 MCHC 32.7 g/dl (32.0-35.9) 01/07/19 07:30 RDW 15.2 % (11.9-15.9) 01/07/19 07:30 Plt Count 310 K/MM3 (134-434) 01/07/19 07:30 MPV 8.6 fl (7.5-11.1) 01/07/19 07:30 Sodium 139 mmol/L (136-145) 01/07/19 07:30 Potassium 4.3 mmol/L (3.5-5.1) 01/07/19 07:30 Chloride 108 mmol/L (98-107) H 01/07/19 07:30 Carbon Dioxide 25 mmol/L (21-32) 01/07/19 07:30 Anion Gap 6 MMOL/L (8-16) L 01/07/19 07:30 BUN 12 mg/dL (7-18) 01/07/19 07:30 Creatinine 0.8 mg/dL (0.55-1.3) 01/07/19 07:30 Creat Clearance w eGFR 97.02 (>60) 01/07/19 07:30 Random Glucose 110 mg/dL (74-106) H 01/07/19 07:30 Calcium 8.7 mg/dL (8.5-10.1) 01/07/19 07:30 Total Bilirubin 0.4 mg/dL (0.2-1) 01/07/19 07:30 AST 19 U/L (15-37) 01/07/19 07:30 ALT 17 U/L (13-61) 01/07/19 07:30 Alkaline Phosphatase 78 U/L (45-117) 01/07/19 07:30 Total Protein 7.1 g/dl (6.4-8.2) 01/07/19 07:30 Albumin 3.4 g/dl (3.4-5.0) 01/07/19 07:30 RPR Titer Nonreactive (NONREACTIVE) 01/07/19 07:30 lab noted - Treatment Hospital Course: Detox Protocol Followed, Detoxed Safely, Responded well, Discharged Condition Good, Rehab Referral Accepted Patient has Accepted a Rehab Referral to[facility] - Medication Discharge Medications: Ambulatory Orders Aspirin [Aspirin EC] 81 mg PO DAILY 11/11/18 Gabapentin [Neurontin] 600 mg PO TID 11/11/18 Omeprazole 40 mg PO DAILY 11/11/18 Atorvastatin Ca [Lipitor] 80 mg PO HS #7 tablet 11/14/18 Lisinopril [Prinivil] 20 mg PO DAILY #7 tablet 11/14/18 - Diagnosis (1) Alcohol dependence with uncomplicated withdrawal Status: Acute (2) GERD (gastroesophageal reflux disease) Status: Chronic Qualifiers: Esophagitis presence: esophagitis presence not specified Qualified Code(s) : K21.9 - Gastro-esophageal reflux disease without esophagitis (3) HTN (hypertension) Status: Chronic Qualifiers: Hypertension type: essential hypertension Qualified Code(s): I10 - Essential (primary) hypertension (4) Hypercholesteremia Status: Chronic (5) Nicotine dependence Status: Acute Qualifiers: Nicotine product type: cigarettes Substance use status: in withdrawal Qualified Code(s): F17.213 - Nicotine dependence, cigarettes, with withdrawal (6) Use of cane as ambulatory aid Status: Chronic - AMA Did Patient Leave Against Medical Advice: No
== END 2019-01-10 10:33 | disposition home or self-care (01) | DRG 897 ==
LOC: YASAS 14:15 → Y3N 18:06
PROVIDERS: ADMIT Surgery; ATTEND Surgery
PROC: HZ2ZZZZ Detoxification Services for Substance Abuse Treatment (ICD-10-PCS; principal; 2019-01-06)
DX: F10.230 Alcohol dependence with withdrawal, uncomplicated (principal); I69.854 Hemiplegia and hemiparesis following other cerebrovascular disease affecting left non-dominant side; F17.213 Nicotine dependence, cigarettes, with withdrawal; I10 Essential (primary) hypertension; K21.9 Gastro-esophageal reflux disease without esophagitis; E78.00 Pure hypercholesterolemia, unspecified; R26.89 Other abnormalities of gait and mobility; Z99.89 Dependence on other enabling machines and devices; Z87.19 Personal history of other diseases of the digestive system; Z86.19 Personal history of other infectious and parasitic diseases
CPT/HCPCS: 36415; 80053; 85027; 86593

== ENCOUNTER 2019-07-21 11:10 | Inpatient (IN) | payer MEDICARE, OTHER ==
[2019-07-21 12:37] VITALS: BMI 33.3
--- NOTE | 2019-07-21 14:18 | HP ---
CIWA Score Nausea/Vomitin-No Nausea/No Vomiting Muscle Tremors: 3 Anxiety: 3 Agitation: 1-Slight > Activity Paroxysmal Sweats: 1-Minimal Palms Moist Orientation: 0-Oriented Tacttile Disturbances: 0-None Auditory Disturbances: 1-Very Mild Visual Disturbances: 0-None Headache: 1-Very Mild CIWA-Ar Total Score: 10 - Admission Criteria OASAS Guidelines: Admission for Medically Managed Detox: Requires at least one of the followin. CIWA greater than 12 2. Seizures within the past 24 hours 3. Delirium tremens within the past 24 hours 4. Hallucinations within the past 24 hours 5. Acute intervention needed for co occurring medical disorder 6. Acute intervention needed for co occurring psychiatric disorder 7. Severe withdrawal that cannot be handled at a lower level of care (continued vomiting, continued diarrhea, abnormal vital signs) requiring intravenous medication and/or fluids 8. Admitting History and Physical - Smoking History Smoking history: Current every day smoker Have you smoked in the past 12 months: Yes Aproximately how many cigarettes per day: 3 - Alcohol/Substance Use Hx Alcohol Use: Yes Admission ROS [facility] Chief Complaint: detox alcohol Allergies/Adverse Reactions: Allergies Allergy/AdvReac Type Severity Reaction Status Date / Time trazodone Allergy Severe Swelling Verified 07/21/19 12:29 History of Present Illness: 64 year old male history of hypertension, GERD, sciatica, OA (knees) using cane here for alcohol detox. Last here in December, went to rehab in [facility] for 2 months and then relapsed. Alcohol Use: 2 pints of vodka and 4-5 24oz beers daily; last drink was this morning to prevent the shakes; drinks every day since 15 years old. Never had a seizure from withdrawal. Marijuana: 1 blunt 2x a week Cigarettes: 3 cigs a day for 50 years Surgery: 2004 perforated gastric ulcer, 2007 intestinal hernia, 2009 had SBO from surgery Allergy: trazadone - anaphylaxis Live: [facility] home since 12/24/18 Family: in [place], has 2 neices, is close with them; 1 son in [place] Work: former cooking chef - Ebola screening Have you traveled outside of the country in the last 21 days: No Have you had contact with anyone from an Ebola affected area: No Do you have a fever: No - Review of Systems Constitutional: No Symptoms Reported EENT: reports: No Symptoms Reported Respiratory: reports: No Symptoms reported Cardiac: reports: No Symptoms Reported GI: reports: No Symptoms Reported : reports: No Symptoms Reported Musculoskeletal: reports: Back Pain, Joint Pain Integumentary: reports: No Symptoms Reported Neuro: reports: No Symptoms reported Endocrine: reports: No Symptoms Reported Hematology: reports: No Symptoms Reported, Blood Clots Psychiatric: reports: No Sypmtoms Reported, Judgement Intact, Mood/Affect Appropiate, Orientated x3, Anxious, Depressed Patient History - Patient Medical History Hx Anemia: No Hx Asthma: No Hx Chronic Obstructive Pulmonary Disease (COPD): No Hx Cardiac Disorders: Yes (PALPITATIONS) Hx Hypertension: Yes (ON MED) Hx Hypercholesterolemia: Yes (ON MED) HX Cerebrovascular Accident: Yes (LEFT SIDE 2004) Hx Seizures: Yes (LAST EPISODE 2000-NO MED) Hx Diabetes: No Hx Gastrointestinal Disorders: Yes (GERD/SX) Hx Genitourinary Disorders: No Hx Sexually Transmitted Disorders: Yes (SYPHILIS 1971 WITH TREATMENT) Hx Renal Disease (ESRD): No Hx Thyroid Disease: No Hx Human Immunodeficiency Virus (HIV): No Hx Hepatitis C: No Hx Depression: No Hx Suicide Attempt: No (DENIES S/I) Hx Bipolar Disorder: No Hx Schizophrenia: No - Patient Surgical History Past Surgical History: Yes Hx Neurologic Surgery: No Hx Cataract Extraction: No Hx Cardiac Surgery: No Hx Lung Surgery: No Hx Breast Surgery: No Hx Breast Biopsy: No Hx Abdominal Surgery: Yes (PERFORATED GASTRIC ULCER IN 2014; ABD HERNIA 2006) Hx Appendectomy: No Hx Cholecystectomy: No Hx Genitourinary Surgery: No Hx Section: No Hx Orthopedic Surgery: No Other Surgical History: INTESTINAL BLOCKAGE 2009-MESH Anesthesia Reaction: No - PPD History Results: CXR TO BE DONE - Smoking Cessation Smoking history: Current every day smoker Have you smoked in the past 12 months: Yes Aproximately how many cigarettes per day: 3 Hx Chewing Tobacco Use: No Initiated information on smoking cessation: Yes 'Breaking Loose' booklet given: 07/21/19 - Substances abused Alcohol Substance route: Oral Frequency: Daily Amount used: 2 pints of vodka, 4-5/24 oz cans of beer Age of first use: 16 Date of last use: 07/21/19 Marijuana/Hashish Substance route: Smoking Frequency: 1-2 times per week Amount used: $10 Age of first use: 13 Date of last use: 07/18/19 Admission Physical Exam [facility] - Vital Signs Vital Signs: Vital Signs - 24 hr 07/21/19 12:26 Temperature 98.7 F Pulse Rate 107 H Respiratory 18 Rate Blood Pressure 127/84 - Physical General Appearance: Yes: No Apparent Distress, Nourished HEENTM: Yes: EOMI Respiratory: Yes: Chest Non-Tender, Lungs Clear, Normal Breath Sounds Cardiology: Yes: Regular Rhythm, Regular Rate Abdominal: Yes: Normal Bowel Sounds, Non Tender, Flat, Soft Musculoskeletal: Yes: full range of Motion, Gait Steady Extremities: Yes: Normal Capillary Refill, Normal Inspection, Normal Range of Motion, Non-Tender Neurological: Yes: lead database developer II-XII NML intact, Fully Oriented, Alert, Motor Strength 5/5, Normal Mood/Affect, Normal Response Integumentary: Yes: Normal Color, Dry, Warm - Diagnostic (1) Alcohol dependence with uncomplicated withdrawal Current Visit: No Status: Acute Cleared for Admission [facility] - Detox or Rehab [facility] Level of Care: Medically Supervised Breathalyzer - Breathalyzer Breathalyzer: 0 Urine Drug Screen - Test Device Lot number: [id number] Expiration date: 03/26/21 - Control Is test valid?: Yes - Results Drug screen NEGATIVE: No Urine drug screen results: THC-Marijuana Inpatient Rehab Admission - Rehab Decision to Admit Inpatient rehab admission?: No
--- NOTE | 2019-07-21 14:33 | PN ---
Teaching Attending Note Name of Resident: Betito Ramos ATTENDING PHYSICIAN STATEMENT I saw and evaluated the patient. I reviewed the resident's note and discussed the case with the resident. I agree with the resident's findings and plan as documented. SUBJECTIVE: pt here requesting detox from etoh use , reports 2 pints and 4-5 beers/day , relapsed 2 1/2 months after d/c from this facility , starts drinking in the mornings, reports tremors if not drinking , denies seizures , had blackouts in the past , first age of alcohol use 15 , longest sobriety 5 .5 years while incarcerated [id number] , current symptoms as above , latest alcohol use this morning . cannabis use : occasional tobacco : 09/30 ppd PMHX : OA anita knees , using cane for stability , sciatica , htn , gerd , PSHX : 2004 - perforated gastric ulcer, 2006 - hernia, 2008- intestinal obstruction Psych : denies Meds - Lisinopril 20 mg ,ASA 81 mg , Omeprazole 40 mg , Atorvastatin , Gabapentin OBJECTIVE: wnwd Vital Signs - 24 hr 07/21/19 12:26 Temperature 98.7 F Pulse Rate 107 H Respiratory 18 Rate Blood Pressure 127/84 ASSESSMENT AND PLAN: Alcohol dependence -Librium detox
[2019-07-21] MEDS ORDERED: MENTHOL/PHENOL 1 EACH UD MM PRN (14:35)
[2019-07-21] MEDS ORDERED: hydrOXYzine PAMOATE 25 MG CAPSULE (FP) PO PRN (14:35)
[2019-07-21] MEDS ORDERED: chlordiazePOXIDE HCL 10 MG CAPSULE PO PRN (14:35)
[2019-07-21] MEDS ORDERED: METHOCARBAMOL 500 MG TABLET PO PRN (14:35)
[2019-07-21] MEDS ORDERED: BISMUTH SUBSALICYLATE 262 MG/15 ML BTL PO PRN (14:35)
[2019-07-21] MEDS ORDERED: MAGNESIUM CITRATE 300 ML BOTTLE PO PRN (14:35)
[2019-07-21] MEDS ORDERED: MAG HYDROX/AL HYDROX/SIMETH 30 ML UNIT-DOSE CUP PO PRN (14:35)
[2019-07-21] MEDS ORDERED: IBUPROFEN 400 MG TABLET (FP) PO PRN (14:35)
[2019-07-21] MEDS ORDERED: MAGNESIUM HYDROX 2400MG/30ML ORAL SUSPENSION 30 ML CUP PO PRN (14:35)
[2019-07-21] MEDS ORDERED: ACETAMINOPHEN 325 MG TABLET (FP) PO PRN ×2 (14:35)
[2019-07-21 17:01] LABS: HEMATOCRIT 47.9 % (35.4-49); HEMOGLOBIN 15.6 GM/dL (11.7-16.9); MCH 28.3 pg (25.7-33.7); MCHC 32.4 g/dl (32.0-35.9); MEAN CELL VOLUME 87.2 fl (80-96); MEAN PLT VOLUME 8.7 fl (7.5-11.1); PLATELET COUNT 279 K/MM3 (134-434); WHITE BLOOD COUNT 6.9 K/mm3 (4.0-10.0)
[2019-07-21 17:13] LABS: ALBUMIN 3.9 g/dl (3.4-5.0); BILIRUBIN,TOTAL 0.5 mg/dL (0.2-1); BLOOD UREA NITROGEN 7.3 mg/dL (7-18); CALCIUM 9.3 mg/dL (8.5-10.1); CREATININE 0.7 mg/dL (0.55-1.3); TOT PROT 7.8 g/dl (6.4-8.2)
[2019-07-21] MEDS: ASPIRIN COATED 81 MG TABLET.EC PO SCH (18:12)
[2019-07-21] MEDS: PANTOPRAZOLE 40 MG TABLET (FP) PO SCH (18:13)
[2019-07-21] MEDS: LISINOPRIL 20 MG TABLET (FP) PO SCH (18:13)
[2019-07-21] MEDS: chlordiazePOXIDE HCL 25 MG CAPSULE PO SCH (22:00)
[2019-07-21] MEDS: GABAPENTIN 300 MG CAPSULE (FP) PO SCH (22:09)
[2019-07-21] MEDS: ATORVASTATIN CA 40 MG TABLET (FP) PO SCH (22:09)
[2019-07-21] MEDS: THIAMINE HCL 100 MG TABLET (FP) PO SCH (22:09)
[2019-07-21] MEDS: MELATONIN 5 MG TABLETS PO PRN (22:09)
[2019-07-22] MEDS: chlordiazePOXIDE HCL 25 MG CAPSULE PO SCH ×3 (05:40→22:09)
[2019-07-22] MEDS: PANTOPRAZOLE 40 MG TABLET (FP) PO SCH (10:23)
[2019-07-22] MEDS: PRENATAL VITAMINS W/ FOLIC ACID TABLET (FP) PO SCH (10:23)
[2019-07-22] MEDS: GABAPENTIN 300 MG CAPSULE (FP) PO SCH ×2 (10:23→22:08)
[2019-07-22] MEDS: LISINOPRIL 20 MG TABLET (FP) PO SCH (10:23)
[2019-07-22] MEDS: ASPIRIN COATED 81 MG TABLET.EC PO SCH (10:24)
[2019-07-22] MEDS ORDERED: LIDOCAINE HCL 5% TOP OINTMENT 50 GM TUBE TP ONE (14:42)
--- NOTE | 2019-07-22 15:33 | PN ---
S CIWA - CIWA Score Nausea/Vomitin-No Nausea/No Vomiting Muscle Tremors: 4-Moderate,w/Arms Extend Anxiety: 3 Agitation: 1-Slight > Activity Paroxysmal Sweats: 3 Orientation: 0-Oriented Tacttile Disturbances: 0-None Auditory Disturbances: 1-Very Mild Visual Disturbances: 0-None Headache: 0-None Present CIWA-Ar Total Score: 12 BHS Progress Note (SOAP) Subjective: Sweating, Body Aches, Tremors. Objective: PATIENT A & O X 3, OBSERVED AMBULATING ON DETOX UNIT WITH ASSISTANCE OF A CANE. IN NO ACUTE DISTRESS. 07/22/19 15:34 Vital Signs Temperature 97.1 F L 07/22/19 09:35 Pulse Rate 83 07/22/19 09:35 Respiratory Rate 18 07/22/19 09:35 Blood Pressure 131/87 07/22/19 09:35 O2 Sat by Pulse Oximetry (%) Laboratory Tests 07/21/19 07/21/19 07/21/19 14:50 14:50 14:50 WBC 6.9 RBC 5.50 Hgb 15.6 Hct 47.9 MCV 87.2 MCH 28.3 MCHC 32.4 RDW 14.0 Plt Count 279 MPV 8.7 Sodium 141 Potassium 4.0 Chloride 108 H Carbon Dioxide 24 Anion Gap 9 BUN 7.3 Creatinine 0.7 Est GFR (CKD-EPI)AfAm 113.98 Est GFR (CKD-EPI)NonAf 98.34 Random Glucose 83 Calcium 9.3 Total Bilirubin 0.5 AST 62 H ALT 55 Alkaline Phosphatase 71 Total Protein 7.8 Albumin 3.9 RPR Titer Nonreactive LABS NOTED. Assessment: 07/22/19 15:35 WITHDRAWAL SYMPTOMS. ELEVATED AST LEVEL. Plan: CONTINUE DETOX. PRN FLEXERIL PO FOR BODY ACHES / MUSCLE SPASMS. TOPICAL LIDOCAINE OINTMENT FOR GENERALIZED BODY ACHES. INCREASE DAILY PO WATER INTAKE.
[2019-07-22] MEDS: CYCLOBENZAPRINE HCL 10 MG TABLET (FP) PO PRN (17:31)
[2019-07-22] MEDS: MELATONIN 5 MG TABLETS PO PRN (22:07)
[2019-07-22] MEDS: THIAMINE HCL 100 MG TABLET (FP) PO SCH (22:08)
[2019-07-22] MEDS: ATORVASTATIN CA 40 MG TABLET (FP) PO SCH (22:09)
[2019-07-23] MEDS: PATIENT'S OWN MEDICATION (NON-FORMULARY) (Diclofenac Sodium [Voltaren] 100 GM) TP SCH ×2 (01:25→01:26)
[2019-07-23] MEDS: CYCLOBENZAPRINE HCL 10 MG TABLET (FP) PO PRN ×3 (03:00→22:15)
[2019-07-23] MEDS: chlordiazePOXIDE 5 MG CAPSULE PO SCH ×3 (05:26→22:12)
--- NOTE | 2019-07-23 09:38 | PN ---
[facility] CIWA - CIWA Score Nausea/Vomitin-Mild Nausea/No Vomiting Muscle Tremors: 3 Anxiety: 2 Agitation: 2 Paroxysmal Sweats: 2 Orientation: 1-Uncertain about Date Tacttile Disturbances: 0-None Auditory Disturbances: 0-None Visual Disturbances: 0-None Headache: 0-None Present CIWA-Ar Total Score: 11 S Progress Note (SOAP) Subjective: 64 years old male admitted on 07/21/19 for alcohol withdrawal sx management treated with librium detox regimen tolerate well at this time ambulating with cane steady gait tremor anxiety restlessness Objective: 07/23/19 09:37 Vital Signs Temperature 98.9 F 07/23/19 09:05 Pulse Rate 83 07/23/19 09:05 Respiratory Rate 18 07/23/19 09:05 Blood Pressure 135/86 07/23/19 09:05 O2 Sat by Pulse Oximetry (%) Laboratory Last Values WBC 6.9 K/mm3 (4.0-10.0) 07/21/19 14:50 RBC 5.50 M/mm3 (4.00-5.60) 07/21/19 14:50 Hgb 15.6 GM/dL (11.7-16.9) 07/21/19 14:50 Hct 47.9 % (35.4-49) 07/21/19 14:50 MCV 87.2 fl (80-96) 07/21/19 14:50 MCH 28.3 pg (25.7-33.7) 07/21/19 14:50 MCHC 32.4 g/dl (32.0-35.9) 07/21/19 14:50 RDW 14.0 % (11.9-15.9) 07/21/19 14:50 Plt Count 279 K/MM3 (134-434) 07/21/19 14:50 MPV 8.7 fl (7.5-11.1) 07/21/19 14:50 Sodium 141 mmol/L (136-145) 07/21/19 14:50 Potassium 4.0 mmol/L (3.5-5.1) 07/21/19 14:50 Chloride 108 mmol/L (98-107) H 07/21/19 14:50 Carbon Dioxide 24 mmol/L (21-32) 07/21/19 14:50 Anion Gap 9 MMOL/L (8-16) 07/21/19 14:50 BUN 7.3 mg/dL (7-18) 07/21/19 14:50 Creatinine 0.7 mg/dL (0.55-1.3) 07/21/19 14:50 Est GFR (CKD-EPI)AfAm 113.98 07/21/19 14:50 Est GFR (CKD-EPI)NonAf 98.34 07/21/19 14:50 Random Glucose 83 mg/dL (74-106) 07/21/19 14:50 Calcium 9.3 mg/dL (8.5-10.1) 07/21/19 14:50 Total Bilirubin 0.5 mg/dL (0.2-1) 07/21/19 14:50 AST 62 U/L (15-37) H 07/21/19 14:50 ALT 55 U/L (13-61) 07/21/19 14:50 Alkaline Phosphatase 71 U/L (45-117) 07/21/19 14:50 Total Protein 7.8 g/dl (6.4-8.2) 07/21/19 14:50 Albumin 3.9 g/dl (3.4-5.0) 07/21/19 14:50 RPR Titer Nonreactive (NONREACTIVE) 07/21/19 14:50 lab noted Assessment: 07/23/19 09:37 alcohol withdrawal sx Plan: continue librium detox regimen
[2019-07-23] MEDS: PRENATAL VITAMINS W/ FOLIC ACID TABLET (FP) PO SCH (10:41)
[2019-07-23] MEDS: PANTOPRAZOLE 40 MG TABLET (FP) PO SCH (10:41)
[2019-07-23] MEDS: ASPIRIN COATED 81 MG TABLET.EC PO SCH (10:41)
[2019-07-23] MEDS: LISINOPRIL 20 MG TABLET (FP) PO SCH (10:41)
[2019-07-23] MEDS: GABAPENTIN 300 MG CAPSULE (FP) PO SCH ×2 (10:41→22:13)
[2019-07-23] MEDS: THIAMINE HCL 100 MG TABLET (FP) PO SCH (22:13)
[2019-07-23] MEDS: MELATONIN 5 MG TABLETS PO PRN (22:13)
[2019-07-23] MEDS: ATORVASTATIN CA 40 MG TABLET (FP) PO SCH (22:13)
[2019-07-24] MEDS ORDERED: chlordiazePOXIDE HCL 10 MG CAPSULE PO PRN
[2019-07-24] MEDS: chlordiazePOXIDE HCL 10 MG CAPSULE PO SCH ×3 (05:42→22:10)
[2019-07-24] MEDS: LISINOPRIL 20 MG TABLET (FP) PO SCH (10:12)
[2019-07-24] MEDS: PANTOPRAZOLE 40 MG TABLET (FP) PO SCH (10:12)
[2019-07-24] MEDS: PRENATAL VITAMINS W/ FOLIC ACID TABLET (FP) PO SCH (10:12)
[2019-07-24] MEDS: ASPIRIN COATED 81 MG TABLET.EC PO SCH (10:12)
[2019-07-24] MEDS: GABAPENTIN 300 MG CAPSULE (FP) PO SCH ×2 (10:12→22:10)
--- NOTE | 2019-07-24 13:03 | PN ---
[facility] CIWA - CIWA Score Nausea/Vomitin-No Nausea/No Vomiting Muscle Tremors: 3 Anxiety: 2 Agitation: 1-Slight > Activity Paroxysmal Sweats: 2 Orientation: 1-Uncertain about Date Tacttile Disturbances: 0-None Auditory Disturbances: 0-None Visual Disturbances: 0-None Headache: 0-None Present CIWA-Ar Total Score: 9 S Progress Note (SOAP) Subjective: 64 years old male admitted on 07/21/19 for alcohol withdrawal sx management treated with librium detox regimen ambulating with cane steady gait anxious about discharge tomorrow that continue sweating and anxious about relapse patient reports that he battles with alcohol most of his life and wants to maintain sober anxiety with trouble sleep at night patient appeared tired and down denies suicidal ideation additional librium 5 mg po Objective: 07/24/19 13:07 Vital Signs Temperature 98.4 F 07/24/19 09:15 Pulse Rate 94 H 07/24/19 09:15 Respiratory Rate 18 07/24/19 09:15 Blood Pressure 133/89 07/24/19 09:15 O2 Sat by Pulse Oximetry (%) Laboratory Last Values WBC 6.9 K/mm3 (4.0-10.0) 07/21/19 14:50 RBC 5.50 M/mm3 (4.00-5.60) 07/21/19 14:50 Hgb 15.6 GM/dL (11.7-16.9) 07/21/19 14:50 Hct 47.9 % (35.4-49) 07/21/19 14:50 MCV 87.2 fl (80-96) 07/21/19 14:50 MCH 28.3 pg (25.7-33.7) 07/21/19 14:50 MCHC 32.4 g/dl (32.0-35.9) 07/21/19 14:50 RDW 14.0 % (11.9-15.9) 07/21/19 14:50 Plt Count 279 K/MM3 (134-434) 07/21/19 14:50 MPV 8.7 fl (7.5-11.1) 07/21/19 14:50 Sodium 141 mmol/L (136-145) 07/21/19 14:50 Potassium 4.0 mmol/L (3.5-5.1) 07/21/19 14:50 Chloride 108 mmol/L (98-107) H 07/21/19 14:50 Carbon Dioxide 24 mmol/L (21-32) 07/21/19 14:50 Anion Gap 9 MMOL/L (8-16) 07/21/19 14:50 BUN 7.3 mg/dL (7-18) 07/21/19 14:50 Creatinine 0.7 mg/dL (0.55-1.3) 07/21/19 14:50 Est GFR (CKD-EPI)AfAm 113.98 07/21/19 14:50 Est GFR (CKD-EPI)NonAf 98.34 07/21/19 14:50 Random Glucose 83 mg/dL (74-106) 07/21/19 14:50 Calcium 9.3 mg/dL (8.5-10.1) 07/21/19 14:50 Total Bilirubin 0.5 mg/dL (0.2-1) 07/21/19 14:50 AST 62 U/L (15-37) H 07/21/19 14:50 ALT 55 U/L (13-61) 07/21/19 14:50 Alkaline Phosphatase 71 U/L (45-117) 07/21/19 14:50 Total Protein 7.8 g/dl (6.4-8.2) 07/21/19 14:50 Albumin 3.9 g/dl (3.4-5.0) 07/21/19 14:50 RPR Titer Nonreactive (NONREACTIVE) 07/21/19 14:50 HIV 1&2 Antibody Screen Negative 07/23/19 05:40 HIV P24 Antigen Negative 07/23/19 05:40 lab noted Assessment: 07/24/19 13:08 alcohol withdrawal sx Plan: continue librium detox regimen emotional support with [facility] for sobriety
[2019-07-24] MEDS: CYCLOBENZAPRINE HCL 10 MG TABLET (FP) PO PRN (15:13)
[2019-07-24] MEDS: MELATONIN 5 MG TABLETS PO PRN (22:10)
[2019-07-24] MEDS: THIAMINE HCL 100 MG TABLET (FP) PO SCH (22:10)
[2019-07-24] MEDS: ATORVASTATIN CA 40 MG TABLET (FP) PO SCH (22:10)
[2019-07-25] MEDS ORDERED: chlordiazePOXIDE HCL 10 MG CAPSULE PO ONE (05:00)
[2019-07-25] MEDS: LISINOPRIL 20 MG TABLET (FP) PO SCH (10:21)
[2019-07-25] MEDS: PRENATAL VITAMINS W/ FOLIC ACID TABLET (FP) PO SCH (10:21)
[2019-07-25] MEDS: PANTOPRAZOLE 40 MG TABLET (FP) PO SCH (10:21)
[2019-07-25] MEDS: GABAPENTIN 300 MG CAPSULE (FP) PO SCH ×2 (10:21→22:08)
[2019-07-25] MEDS: CYCLOBENZAPRINE HCL 10 MG TABLET (FP) PO PRN ×2 (10:22→22:09)
[2019-07-25] MEDS: ASPIRIN COATED 81 MG TABLET.EC PO SCH (10:23)
--- NOTE | 2019-07-25 14:29 | PN ---
S CIWA - CIWA Score Nausea/Vomitin-Mild Nausea/No Vomiting Muscle Tremors: 1-None Visible, but [place]ubbs Anxiety: 2 Agitation: 2 Paroxysmal Sweats: No Perspiration Orientation: 0-Oriented Tacttile Disturbances: 1-Very Mild Itch/Numbness Auditory Disturbances: 0-None Visual Disturbances: 0-None Headache: 2-Mild CIWA-Ar Total Score: 9 BHS Progress Note (SOAP) Subjective: alert,irritable,anxious,interrupted sleep Objective: 07/25/19 14:28 Vital Signs Temperature 97.4 F L 07/25/19 13:42 Pulse Rate 86 07/25/19 13:42 Respiratory Rate 18 07/25/19 13:42 Blood Pressure 126/79 07/25/19 13:42 O2 Sat by Pulse Oximetry (%) Assessment: 07/25/19 14:28 withdrawal symptom Plan: continue detox librium regimen,.discharge in am
[2019-07-25] MEDS: THIAMINE HCL 100 MG TABLET (FP) PO SCH (22:08)
[2019-07-25] MEDS: ATORVASTATIN CA 40 MG TABLET (FP) PO SCH (22:08)
[2019-07-25] MEDS: MELATONIN 5 MG TABLETS PO PRN (22:10)
[2019-07-26] MEDS ORDERED: chlordiazePOXIDE 5 MG CAPSULE PO ONE (05:00)
[2019-07-26 06:30] VITALS: BP 120/79; PULSE 89; TEMP 97
--- NOTE | 2019-07-26 12:55 | DS ---
[facility] Detox Discharge Summary Admission Date: 07/21/19 Discharge Date: 07/26/19 - History Present History: Alcohol Dependence Additional Comments: 64 years old male admitted on 07/21/19 for alcohol withdrawal sx management treated with librium detox regimen patient tolerate well ambulating with cane stead gait respiratory clear lung bilaterally on auscultatin abdomen soft round obese no rebound tenderness skin warm dry - Physical Exam Results Vital Signs: Vital Signs Temperature 97.0 F L 07/26/19 06:30 Pulse Rate 89 07/26/19 06:30 Respiratory Rate 18 07/26/19 06:30 Blood Pressure 120/79 07/26/19 06:30 O2 Sat by Pulse Oximetry (%) Pertinent Admission Physical Exam Findings: alcohol withdrawal sx Laboratory Last Values WBC 6.9 K/mm3 (4.0-10.0) 07/21/19 14:50 RBC 5.50 M/mm3 (4.00-5.60) 07/21/19 14:50 Hgb 15.6 GM/dL (11.7-16.9) 07/21/19 14:50 Hct 47.9 % (35.4-49) 07/21/19 14:50 MCV 87.2 fl (80-96) 07/21/19 14:50 MCH 28.3 pg (25.7-33.7) 07/21/19 14:50 MCHC 32.4 g/dl (32.0-35.9) 07/21/19 14:50 RDW 14.0 % (11.9-15.9) 07/21/19 14:50 Plt Count 279 K/MM3 (134-434) 07/21/19 14:50 MPV 8.7 fl (7.5-11.1) 07/21/19 14:50 Sodium 141 mmol/L (136-145) 07/21/19 14:50 Potassium 4.0 mmol/L (3.5-5.1) 07/21/19 14:50 Chloride 108 mmol/L (98-107) H 07/21/19 14:50 Carbon Dioxide 24 mmol/L (21-32) 07/21/19 14:50 Anion Gap 9 MMOL/L (8-16) 07/21/19 14:50 BUN 7.3 mg/dL (7-18) 07/21/19 14:50 Creatinine 0.7 mg/dL (0.55-1.3) 07/21/19 14:50 Est GFR (CKD-EPI)AfAm 113.98 07/21/19 14:50 Est GFR (CKD-EPI)NonAf 98.34 07/21/19 14:50 Random Glucose 83 mg/dL (74-106) 07/21/19 14:50 Calcium 9.3 mg/dL (8.5-10.1) 07/21/19 14:50 Total Bilirubin 0.5 mg/dL (0.2-1) 07/21/19 14:50 AST 62 U/L (15-37) H 07/21/19 14:50 ALT 55 U/L (13-61) 07/21/19 14:50 Alkaline Phosphatase 71 U/L (45-117) 07/21/19 14:50 Total Protein 7.8 g/dl (6.4-8.2) 07/21/19 14:50 Albumin 3.9 g/dl (3.4-5.0) 07/21/19 14:50 RPR Titer Nonreactive (NONREACTIVE) 07/21/19 14:50 HIV 1&2 Antibody Screen Negative 07/23/19 05:40 HIV P24 Antigen Negative 07/23/19 05:40 lab noted - Treatment Hospital Course: Detox Protocol Followed, Detoxed Safely, Responded well, Discharged Condition Good, Rehab Referral Accepted Patient has Accepted a Rehab Referral to: community support approach - Medication Discharge Medications: Ambulatory Orders Aspirin [Aspirin EC] 81 mg PO DAILY 11/11/18 Gabapentin [Neurontin] 600 mg PO BID 11/11/18 Omeprazole 40 mg PO DAILY 11/11/18 Lisinopril [Prinivil] 20 mg PO DAILY #7 tablet 11/14/18 Atorvastatin Ca [Lipitor] 40 mg PO HS 07/21/19 Diclofenac Sodium [Voltaren] 100 gm TP BID 07/21/19 - Diagnosis (1) Alcohol dependence with uncomplicated withdrawal Status: Acute (2) Nicotine dependence Status: Acute Qualifiers: Nicotine product type: cigarettes Substance use status: in withdrawal Qualified Code(s): F17.213 - Nicotine dependence, cigarettes, with withdrawal (3) GERD (gastroesophageal reflux disease) Status: Chronic Qualifiers: Esophagitis presence: esophagitis presence not specified Qualified Code(s) : K21.9 - Gastro-esophageal reflux disease without esophagitis (4) HTN (hypertension) Status: Chronic Qualifiers: Hypertension type: essential hypertension Qualified Code(s): I10 - Essential (primary) hypertension (5) Hypercholesteremia Status: Chronic (6) Obesity (BMI 30.0-34.9) Status: Chronic (7) Use of cane as ambulatory aid Status: Chronic - AMA Did Patient Leave Against Medical Advice: No CIWA Score - CIWA Score Nausea/Vomitin-No Nausea/No Vomiting Muscle Tremors: None Anxiety: 1-Mildly Anxious Agitation: 1-Slight > Activity Paroxysmal Sweats: No Perspiration Orientation: 0-Oriented Tacttile Disturbances: 1-Very Mild Itch/Numbness Auditory Disturbances: 0-None Visual Disturbances: 0-None Headache: 2-Mild CIWA-Ar Total Score: 5
== END 2019-07-26 08:49 | disposition home or self-care (01) | DRG 897 ==
LOC: YASAS 11:10 → Y3N 15:10
PROVIDERS: ADMIT Allergy & Immunology; ATTEND Allergy & Immunology
PROC: HZ2ZZZZ Detoxification Services for Substance Abuse Treatment (ICD-10-PCS; principal; 2019-07-21)
DX: F10.230 Alcohol dependence with withdrawal, uncomplicated (principal); F17.213 Nicotine dependence, cigarettes, with withdrawal; I10 Essential (primary) hypertension; K21.9 Gastro-esophageal reflux disease without esophagitis; E78.00 Pure hypercholesterolemia, unspecified; M54.30 Sciatica, unspecified side; R74.0 Nonspecific elevation of levels of transaminase and lactic acid dehydrogenase [LDH]; M17.0 Bilateral primary osteoarthritis of knee; E66.9 Obesity, unspecified; Z68.33 Body mass index [BMI] 33.0-33.9, adult; R26.2 Difficulty in walking, not elsewhere classified; Z99.89 Dependence on other enabling machines and devices; Z87.438 Personal history of other diseases of male genital organs; Z86.73 Personal history of transient ischemic attack (TIA), and cerebral infarction without residual deficits
CPT/HCPCS: 36415; 80053; 85027; 86593; 87389